=== PATIENT | male | born 1960 | race Caucasian/White ===

== ENCOUNTER 2017-10-13 13:18 | Inpatient (IN) | payer OTHER ==
[~2017-10-13] VITALS: Ht 182.9 cm; Wt 99.8 kg
[2017-10-13] MEDS ORDERED: ASPI-986 PO (13:32)
[2017-10-13] MEDS ORDERED: RED1POWD2 MC (13:32)
[2017-10-13] MEDS ORDERED: MAGN400C PO (13:32)
[2017-10-13] MEDS ORDERED: AMLO10TA80 PO (13:32)
[2017-10-13] MEDS ORDERED: METO-539 PO (13:32)
[2017-10-13] MEDS ORDERED: NITROGLYCERIN 0.4MG TABLET SL SL ONE (17:15)
[2017-10-13] MEDS ORDERED: ASPIRIN 325MG EC TABLET PO ONE (17:15)
[2017-10-13 17:27] LABS: BASOPHILS % 0.8 % (0.0-2.0); EOSINOPHILS % 2.9 % (0.0-5.0); HEMATOCRIT. 51.2 % (42.0-52.0); HEMOGLOBIN. 17.4 g/dL (14.0-18.0); LYMPHOCYTES % 18.2 % (20.0-50.0); MEAN CORPUSCULAR HEMOGLOBIN 29.1 pg (28.0-32.0); MEAN CORPUSCULAR VOLUME 85.8 fL (80.0-94.0); MEAN PLATELET VOLUME 8.5 fl (7.4-10.4); MONOCYTES % 7.8 % (2.0-8.0); NEUTROPHILS % 70.3 % (40.0-76.0); PLATELET 248 x1000/uL (130-400); RED BLOOD CELL COUNT 5.96 mill/uL (4.7-6.1)
[2017-10-13] MEDS ORDERED: CLONIDINE 0.1MG TABLET PO ONE (17:30)
[2017-10-13 17:31] LABS: CHLORIDE 104 mEq/L (98-107)
[2017-10-13 17:39] LABS: D-DIMER < 0.19 mg/L FEU (<0.50); INR 1.1; PARTIAL THROMBOPLASTIN TIME 33.6 sec (23.4-31.0); PROTHROMBIN TIME 11.4 sec (9.4-11.6)
[2017-10-13 17:40] LABS: CARBON DIOXIDE 27 mEq/L (21-32)
[2017-10-13 17:41] LABS: TROPONIN I < 0.02 ng/mL (0.00-0.04)
[2017-10-13 23:00] VITALS: BP 123/86
[2017-10-14] VITALS: BP 123/86
[2017-10-14] MEDS: METOPROLOL TARTRATE 50MG TABLET PO SCH ×3 (01:00→21:24)
[2017-10-14 04:00] VITALS: BP 120/80
[2017-10-14 08:00] VITALS: BP 145/88
[2017-10-14 08:27] LABS: BASOPHILS % 0.9 % (0.0-2.0); EOSINOPHILS % 4.4 % (0.0-5.0); HEMATOCRIT. 51.1 % (42.0-52.0); HEMOGLOBIN. 17.3 g/dL (14.0-18.0); LYMPHOCYTES % 21.3 % (20.0-50.0); MEAN CORPUSCULAR HEMOGLOBIN 29.4 pg (28.0-32.0); MEAN CORPUSCULAR VOLUME 86.7 fL (80.0-94.0); MEAN PLATELET VOLUME 8.5 fl (7.4-10.4); MONOCYTES % 7.7 % (2.0-8.0); NEUTROPHILS % 65.7 % (40.0-76.0); PLATELET 227 x1000/uL (130-400); RED BLOOD CELL COUNT 5.89 mill/uL (4.7-6.1); RED CELL DISTRIBUTION WIDTH 13.6 % (11.6-14.6)
[2017-10-14] MEDS: AMLODIPINE 5MG TABLET PO SCH (08:40)
[2017-10-14 09:18] LABS: CARBON DIOXIDE 26 mEq/L (21-32); CHLORIDE 103 mEq/L (98-107); TROPONIN I < 0.02 ng/mL (0.00-0.04)
[2017-10-14] MEDS: ASPIRIN 325MG TABLET PO SCH (10:48)
[2017-10-14 12:00] VITALS: BP 136/78
[2017-10-14 16:53] VITALS: BP 121/82
[2017-10-14 20:00] VITALS: BP 135/87
[2017-10-15] VITALS: BP 122/79
[2017-10-15 04:00] VITALS: BP 119/71
[2017-10-15 08:29] VITALS: BP 104/82
[2017-10-15] MEDS: ASPIRIN 325MG TABLET PO SCH (08:32)
[2017-10-15] MEDS: METOPROLOL TARTRATE 50MG TABLET PO SCH (08:32)
[2017-10-15] MEDS: AMLODIPINE 5MG TABLET PO SCH (08:32)
[2017-10-15 12:00] VITALS: BP 123/85
[2017-10-15 12:34] VITALS: BP 123/85
== END 2017-10-15 15:30 | disposition home or self-care (01) | DRG 313 ==
LOC: ER 13:50 → 8WST 18:12 → EDBEDREQ 18:16 → EDBEDREQTM 18:16 → ENRESERV 21:41
PROVIDERS: ADMIT Internal Medicine; ATTEND Internal Medicine
DX: R07.89 Other chest pain (principal); I48.91 Unspecified atrial fibrillation; I10 Essential (primary) hypertension; R61 Generalized hyperhidrosis; F41.9 Anxiety disorder, unspecified; K80.20 Calculus of gallbladder without cholecystitis without obstruction; Z79.82 Long term (current) use of aspirin; Z79.899 Other long term (current) drug therapy
CPT/HCPCS: 36415; 71010; 76700; 80048; 80053; 83690; 83880; 84484; 85025; 85379; 85610; 85730; 93005; 93306; 99285